=== PATIENT | female | born 1950 | race Hispanic/Latino ===

== ENCOUNTER 2020-06-06 09:06 | Day surgery (SDC) | payer MEDICARE, OTHER ==
[2020-06-06] MEDS ORDERED: Sodium Bicarbonate 2.5 MEQ/5 ML VIAL ONE (09:12)
[2020-06-06 09:29] VITALS: BMI 26.4
[2020-06-06 09:37] VITALS: BP 98/58; TEMP 97.6
== END 2020-06-06 10:50 | disposition home or self-care (01) ==
LOC: CSHRAD 09:06
PROVIDERS: ATTEND Internal Medicine Hepatology
PROC: 0W993ZZ Drainage of Right Pleural Cavity, Percutaneous Approach (ICD-10-PCS; principal; 2020-06-06)
DX: J90 Pleural effusion, not elsewhere classified (principal)
CPT/HCPCS: 71045; 76942

== ENCOUNTER → 2020-06-15 | Day surgery (SDC) | payer MEDICARE, OTHER | LOC: CSHRAD 08:46 | PROVIDERS: ATTEND Internal Medicine Hepatology | DX: J94.8 Other specified pleural conditions (principal) | CPT/HCPCS: 71046 ==

== ENCOUNTER 2020-07-03 09:36 | Day surgery (SDC) | payer MEDICARE, OTHER ==
[2020-07-03 09:46] VITALS: BMI 26.4
[2020-07-03] MEDS ORDERED: Sodium Bicarbonate 2.5 MEQ/5 ML VIAL ONE (09:57)
[2020-07-03 10:07] VITALS: BP 129/69
== END 2020-07-03 11:00 | disposition home or self-care (01) ==
LOC: CSHRAD 09:36
PROVIDERS: ATTEND Internal Medicine Hepatology
PROC: 0W993ZZ Drainage of Right Pleural Cavity, Percutaneous Approach (ICD-10-PCS; principal; 2020-07-03)
DX: J90 Pleural effusion, not elsewhere classified (principal)
CPT/HCPCS: 71045; 76942

== ENCOUNTER 2020-07-12 20:22 | Emergency (ER) | payer MEDICARE, OTHER ==
[2020-07-12 21:44] LABS: #Basophils 0.1 10x3/uL (0.0-0.2); #Eosinphils 0.3 10x3/uL (0.0-0.5); #Monocytes 0.6 10x3/uL (0.0-1.1); #Neutrophils 3.3 10x3/uL (1.5-8.4); %Basophils 0.9 % (0.0-2.0); %Eosinophils 5.4 % (0.0-6.0); %Lymphocytes 21.6 % (18.0-47.0); %Monocytes 10.9 % (0.0-10.0); Hemoglobin 11.5 g/dL (12.0-15.5); Mean Corpuscular HGB CONC 34.8 g/dL (32.0-36.0); Mean Corpuscular Hemoglobin 32.9 pg (27.0-33.0); Mean Corpuscular Volume 94.3 fl (81.6-98.3); Mean Platelet Volume 8.5 fl (7.4-10.4); Platelet Count 124 10x3/uL (150-450); RBC Distribution Width 15.8 % (11.5-14.5); White Blood Cell (WBC) Count 5.4 10x3/uL (3.5-10.5)
[2020-07-12] MEDS ORDERED: Pantoprazole 40 MG VIAL ONE (21:51)
[2020-07-12] MEDS ORDERED: Mag-Al Plus 1200 MG/1200 MG/120 MG/30 ML UDCUP ONE (21:51)
[2020-07-12] MEDS ORDERED: Lidocaine Viscous Sol 2% 15 ml UD Cup ONE (21:51)
[2020-07-12 21:57] LABS: ALT (SGPT) 20 U/L (8-55); AST (SGOT) 51 U/L (5-34); Albumin 2.3 g/dL (3.4-4.8); Alkaline Phosphatase 160 U/L (40-110); Anion Gap 13 mmol/L (10-20); BUN (Urea Nitrogen) 10 mg/dL (9.8-20.1); Bilirubin, Total 2.4 mg/dL (0.2-1.2); CK (CPK) 34 U/L (29-168); Calc. Creatinine Clearance 0 mL/min (70-130); Calcium 8.5 mg/dL (7.8-10.44); Carbon Dioxide 21 mmol/L (23-31); Chloride 102 mmol/L (98-107); Globulin 3.6 g/dL (2.4-3.5); Glucose 111 mg/dL (80-115); Lipase 38 U/L (8-78); Magnesium 1.4 mg/dL (1.6-2.6); Potassium 3.9 mmol/L (3.5-5.1); Protein, Total 5.9 g/dL (5.8-8.1); Sodium 132 mmol/L (136-145)
[2020-07-12 22:01] LABS: INR-International Normal Ratio 1.2; PTT 29.1 sec (22.0-33.0)
[2020-07-12 22:14] LABS: Bilirubin Neg (Negative); Blood, Urine 10 (Negative); Clarity Cloudy (Clear); Glucose, Urine (Dipstick) Normal (Negative); Ketone, Urine 5 mg/dL (Negative); Leukocyte 25 (Negative); Nitrite Negative (Negative); Protein, Urine (Dipstick) Negative (Neg-Trace); Urobilinogen Normal mg/dL (Less than 2)
[2020-07-12 22:20] LABS: RBC/HPF 0-3 HPF (0-3)
[2020-07-12 22:21] LABS: Bacteria/HPF 1+ HPF (None Seen); Squamous Epithelial 0-3 HPF (0-3); WBC/HPF 0-3 HPF (0-3)
[2020-07-12 22:22] LABS: Renal Epithelial 0-3 HPF (None Seen)
[2020-07-12 22:26] LABS: Calcium Oxalate Crystals 3+ HPF (None Seen)
== END 2020-07-12 22:32 | disposition home or self-care (01) ==
LOC: CSHERS 20:22
DX: K42.9 Umbilical hernia without obstruction or gangrene (principal); I10 Essential (primary) hypertension; K74.60 Unspecified cirrhosis of liver; Z79.899 Other long term (current) drug therapy
CPT/HCPCS: 71045; 74176; 80053; 81003; 81015; 82550; 83690; 83735; 84484; 85025; 85610; 85730; 93005; 93010; 96374; C9113

== ENCOUNTER 2020-11-15 12:17 | Inpatient (IN) | payer MEDICARE, OTHER ==
[2020-11-15 14:26] LABS: #Eosinphils 0.1 10x3/uL (0.0-0.5); #Monocytes 0.4 10x3/uL (0.0-1.1); #Neutrophils 4.2 10x3/uL (1.5-8.4); %Basophils 0.3 % (0.0-2.0); %Eosinophils 1.9 % (0.0-6.0); %Lymphocytes 17.1 % (18.0-47.0); %Monocytes 6.5 % (0.0-10.0); Hemoglobin 14.3 g/dL (12.0-15.5); Mean Corpuscular HGB CONC 34.5 g/dL (32.0-36.0); Mean Corpuscular Hemoglobin 32.5 pg (27.0-33.0); Mean Corpuscular Volume 94.1 fl (81.6-98.3); Mean Platelet Volume 10.1 fl (7.4-10.4); Platelet Count 120 10x3/uL (150-450); RBC Distribution Width 14.3 % (11.5-14.5); White Blood Cell (WBC) Count 5.7 10x3/uL (3.5-10.5)
[2020-11-15 14:48] LABS: ALT (SGPT) 29 U/L (8-55); AST (SGOT) 59 U/L (5-34); Albumin 2.7 g/dL (3.4-4.8); Alkaline Phosphatase 178 U/L (40-110); Anion Gap 18 mmol/L (10-20); BUN (Urea Nitrogen) 33 mg/dL (9.8-20.1); Bilirubin, Total 2.9 mg/dL (0.2-1.2); CK (CPK) 41 U/L (29-168); Calc. Creatinine Clearance 0 mL/min (70-130); Calcium 10.9 mg/dL (7.8-10.44); Carbon Dioxide 21 mmol/L (23-31); Chloride 99 mmol/L (98-107); Globulin 5.5 g/dL (2.4-3.5); Glucose 137 mg/dL (80-115); Potassium 4.7 mmol/L (3.5-5.1); Protein, Total 8.2 g/dL (5.8-8.1); Sodium 133 mmol/L (136-145)
[2020-11-15 15:50] LABS: Bilirubin Neg (Negative); Blood, Urine 10 (Negative); Clarity Clear (Clear); Glucose, Urine (Dipstick) Normal (Negative); Ketone, Urine Negative (Negative); Leukocyte 25 (Negative); Nitrite Negative (Negative); Protein, Urine (Dipstick) Negative (Neg-Trace); Urobilinogen Normal mg/dL (Less than 2)
[2020-11-15 16:06] LABS: Bacteria/HPF Rare-Few HPF (None Seen); RBC/HPF 0-3 HPF (0-3); Squamous Epithelial 0-3 HPF (0-3); WBC/HPF 0-3 HPF (0-3)
[2020-11-15 16:49] LABS: SARS-CoV-2 NAA Rapid Test Not Detected (NotDetected)
[2020-11-15 18:18] LABS: Lactic Acid 2.7 mmol/L (0.5-2.2)
[2020-11-15] MEDS ORDERED: Senokot S 8.6-50 MG TAB PO PRN (19:24)
[2020-11-15] MEDS ORDERED: Acetaminophen 325 MG TAB PO PRN (19:24)
[2020-11-15] MEDS ORDERED: Ondansetron PF 4 MG/2 ML Vial IVP PRN (19:24)
[2020-11-15] MEDS ORDERED: Calcium Carbonate 500 MG ChewTAB PO PRN (19:24)
[2020-11-15] MEDS ORDERED: Sodium Chloride 0.9% 500 ML IV SCH (19:30)
[2020-11-15 21:01] VITALS: BMI 24.5
[2020-11-15] MEDS: Rifaximin 550 MG TAB PO SCH (21:12)
[2020-11-16 06:02] LABS: #Eosinphils 0.3 10x3/uL (0.0-0.5); #Monocytes 0.4 10x3/uL (0.0-1.1); #Neutrophils 2.6 10x3/uL (1.5-8.4); %Basophils 0.5 % (0.0-2.0); %Monocytes 9.4 % (0.0-10.0); %Neutrophils 62.6 % (40.0-75.0); Hemoglobin 13.1 g/dL (12.0-15.5); Mean Corpuscular HGB CONC 35.1 g/dL (32.0-36.0); Mean Corpuscular Hemoglobin 32.9 pg (27.0-33.0); Mean Corpuscular Volume 93.7 fl (81.6-98.3); Mean Platelet Volume 10.1 fl (7.4-10.4); Platelet Count 91 10x3/uL (150-450); RBC Distribution Width 14.6 % (11.5-14.5); Red Blood Cell (RBC) Count 3.98 10x6/uL (3.90-5.03); White Blood Cell (WBC) Count 4.2 10x3/uL (3.5-10.5)
[2020-11-16 06:09] LABS: ALT (SGPT) 28 U/L (8-55); AST (SGOT) 58 U/L (5-34); Albumin 2.4 g/dL (3.4-4.8); Alkaline Phosphatase 135 U/L (40-110); Anion Gap 17 mmol/L (10-20); BUN (Urea Nitrogen) 26 mg/dL (9.8-20.1); Bilirubin, Total 2.2 mg/dL (0.2-1.2); Calc. Creatinine Clearance 29 mL/min (70-130); Calcium 9.2 mg/dL (7.8-10.44); Carbon Dioxide 19 mmol/L (23-31); Chloride 104 mmol/L (98-107); Globulin 4.8 g/dL (2.4-3.5); Glucose 96 mg/dL (80-115); Protein, Total 7.2 g/dL (5.8-8.1); Sodium 135 mmol/L (136-145)
[2020-11-16 06:16] LABS: Lactic Acid 1.8 mmol/L (0.5-2.2)
[2020-11-16] MEDS: Enoxaparin Sodium 30 MG/0.3 ML SYRINGE SC SCH (07:56)
[2020-11-16] MEDS: Rifaximin 550 MG TAB PO SCH ×2 (08:05→20:26)
[2020-11-16] MEDS ORDERED: Sodium Chloride 0.9% 250 ML IV SCH (09:00)
[2020-11-16 11:40] LABS: Hemoglobin A1c 5.3 % (4.0-6.0)
[2020-11-17 03:57] LABS: ALT (SGPT) 30 U/L (8-55); AST (SGOT) 56 U/L (5-34); Albumin 2.2 g/dL (3.4-4.8); Alkaline Phosphatase 150 U/L (40-110); Anion Gap 14 mmol/L (10-20); BUN (Urea Nitrogen) 16 mg/dL (9.8-20.1); Calc. Creatinine Clearance 32 mL/min (70-130); Calcium 9.5 mg/dL (7.8-10.44); Carbon Dioxide 18 mmol/L (23-31); Chloride 104 mmol/L (98-107); Globulin 4.6 g/dL (2.4-3.5); Glucose 106 mg/dL (80-115); Potassium 3.8 mmol/L (3.5-5.1); Protein, Total 6.8 g/dL (5.8-8.1); Sodium 132 mmol/L (136-145)
[2020-11-17 04:19] LABS: #Eosinphils 0.3 10x3/uL (0.0-0.5); #Monocytes 0.4 10x3/uL (0.0-1.1); #Neutrophils 2.1 10x3/uL (1.5-8.4); %Basophils 0.5 % (0.0-2.0); %Eosinophils 7.5 % (0.0-6.0); %Lymphocytes 24.8 % (18.0-47.0); %Monocytes 11.7 % (0.0-10.0); %Neutrophils 55.2 % (40.0-75.0); Hemoglobin 12.3 g/dL (12.0-15.5); Mean Corpuscular HGB CONC 35.2 g/dL (32.0-36.0); Mean Corpuscular Hemoglobin 32.2 pg (27.0-33.0); Mean Corpuscular Volume 91.4 fl (81.6-98.3); Mean Platelet Volume 10.3 fl (7.4-10.4); Platelet Count 88 10x3/uL (150-450); RBC Distribution Width 14.2 % (11.5-14.5); Red Blood Cell (RBC) Count 3.82 10x6/uL (3.90-5.03); White Blood Cell (WBC) Count 3.8 10x3/uL (3.5-10.5)
[2020-11-17] MEDS: Furosemide 20 MG TAB PO SCH (08:00)
[2020-11-17] MEDS: Enoxaparin Sodium 30 MG/0.3 ML SYRINGE SC SCH (08:00)
[2020-11-17] MEDS: Spironolactone 25 MG TAB PO SCH (08:00)
[2020-11-17] MEDS: Rifaximin 550 MG TAB PO SCH ×2 (09:59→21:35)
[2020-11-18 05:28] LABS: ALT (SGPT) 30 U/L (8-55); AST (SGOT) 63 U/L (5-34); Albumin 2.3 g/dL (3.4-4.8); Alkaline Phosphatase 155 U/L (40-110); Anion Gap 13 mmol/L (10-20); BUN (Urea Nitrogen) 14 mg/dL (9.8-20.1); Calc. Creatinine Clearance 41 mL/min (70-130); Calcium 9.6 mg/dL (7.8-10.44); Carbon Dioxide 20 mmol/L (23-31); Chloride 105 mmol/L (98-107); Globulin 4.9 g/dL (2.4-3.5); Glucose 105 mg/dL (80-115); Magnesium 1.6 mg/dL (1.6-2.6); Protein, Total 7.2 g/dL (5.8-8.1); Sodium 134 mmol/L (136-145)
[2020-11-18 05:51] LABS: #Eosinphils 0.6 10x3/uL (0.0-0.5); #Monocytes 0.5 10x3/uL (0.0-1.1); #Neutrophils 2.3 10x3/uL (1.5-8.4); %Basophils 0.7 % (0.0-2.0); %Eosinophils 12.3 % (0.0-6.0); %Lymphocytes 25.6 % (18.0-47.0); %Monocytes 10.5 % (0.0-10.0); %Neutrophils 50.7 % (40.0-75.0); Hemoglobin 12.9 g/dL (12.0-15.5); Mean Corpuscular HGB CONC 35.2 g/dL (32.0-36.0); Mean Corpuscular Hemoglobin 32.6 pg (27.0-33.0); Mean Corpuscular Volume 92.4 fl (81.6-98.3); Mean Platelet Volume 9.9 fl (7.4-10.4); Platelet Count 97 10x3/uL (150-450); RBC Distribution Width 14.2 % (11.5-14.5); Red Blood Cell (RBC) Count 3.96 10x6/uL (3.90-5.03); White Blood Cell (WBC) Count 4.6 10x3/uL (3.5-10.5)
[2020-11-18] MEDS: Enoxaparin Sodium 30 MG/0.3 ML SYRINGE SC SCH (08:39)
[2020-11-18] MEDS: Rifaximin 550 MG TAB PO SCH ×2 (08:39→21:22)
[2020-11-18] MEDS: Furosemide 20 MG TAB PO SCH (08:39)
[2020-11-18] MEDS: Spironolactone 25 MG TAB PO SCH (08:39)
[2020-11-18 13:43] LABS: #Eosinphils 0.4 10x3/uL (0.0-0.5); #Monocytes 0.4 10x3/uL (0.0-1.1); #Neutrophils 3.1 10x3/uL (1.5-8.4); %Basophils 0.4 % (0.0-2.0); %Eosinophils 7.3 % (0.0-6.0); %Lymphocytes 22.2 % (18.0-47.0); %Monocytes 7.9 % (0.0-10.0); %Neutrophils 61.8 % (40.0-75.0); Hemoglobin 13.8 g/dL (12.0-15.5); Mean Corpuscular HGB CONC 34.8 g/dL (32.0-36.0); Mean Corpuscular Hemoglobin 32.5 pg (27.0-33.0); Mean Corpuscular Volume 93.4 fl (81.6-98.3); Mean Platelet Volume 9.5 fl (7.4-10.4); Platelet Count 107 10x3/uL (150-450); Red Blood Cell (RBC) Count 4.25 10x6/uL (3.90-5.03)
[2020-11-18 13:48] LABS: ALT (SGPT) 32 U/L (8-55); AST (SGOT) 63 U/L (5-34); Albumin 2.4 g/dL (3.4-4.8); Alkaline Phosphatase 160 U/L (40-110); Anion Gap 15 mmol/L (10-20); BUN (Urea Nitrogen) 12 mg/dL (9.8-20.1); Bilirubin, Total 2.2 mg/dL (0.2-1.2); Calc. Creatinine Clearance 40 mL/min (70-130); Calcium 9.6 mg/dL (7.8-10.44); Carbon Dioxide 19 mmol/L (23-31); Chloride 103 mmol/L (98-107); Glucose 147 mg/dL (80-115); Magnesium 1.6 mg/dL (1.6-2.6); Potassium 3.8 mmol/L (3.5-5.1); Protein, Total 7.4 g/dL (5.8-8.1); Sodium 133 mmol/L (136-145)
[2020-11-19] MEDS: Spironolactone 25 MG TAB PO SCH (08:10)
[2020-11-19] MEDS: Enoxaparin Sodium 30 MG/0.3 ML SYRINGE SC SCH (08:11)
[2020-11-19] MEDS: Furosemide 20 MG TAB PO SCH (08:11)
[2020-11-19] MEDS: Rifaximin 550 MG TAB PO SCH (08:11)
[2020-11-19 12:13] VITALS: BP 124/65; TEMP 98.7
== END 2020-11-19 14:54 | disposition home or self-care (01) | DRG 442 ==
LOC: CSHERS 12:17 → CSHTELE 20:57
PROVIDERS: ADMIT Student in an Organized Health Care Education/Training Program; ATTEND Family Medicine
DX: K72.00 Acute and subacute hepatic failure without coma (principal); N17.9 Acute kidney failure, unspecified; E87.2 Acidosis; J90 Pleural effusion, not elsewhere classified; E87.1 Hypo-osmolality and hyponatremia; E72.20 Disorder of urea cycle metabolism, unspecified; E83.52 Hypercalcemia; D69.6 Thrombocytopenia, unspecified; I48.0 Paroxysmal atrial fibrillation; K75.81 Nonalcoholic steatohepatitis (NASH); Z87.891 Personal history of nicotine dependence; I12.9 Hypertensive chronic kidney disease with stage 1 through stage 4 chronic kidney disease, or unspecified chronic kidney disease; N18.31 Chronic kidney disease, stage 3a; K59.00 Constipation, unspecified; Z20.822 Contact with and (suspected) exposure to COVID-19
CPT/HCPCS: 36415; 70450; 71045; 74176; 80053; 81003; 81015; 82140; 82550; 83036; 83605; 83735; 84484; 85025; 93005; J1650; J7030; U0002

== ENCOUNTER 2021-09-02 22:06 | Emergency (ER) | payer MEDICARE, OTHER ==
[2021-09-02 22:33] LABS: #Eosinphils 0.2 10x3/uL (0.0-0.5); #Monocytes 0.8 10x3/uL (0.0-1.1); #Neutrophils 4.6 10x3/uL (1.5-8.4); %Basophils 0.5 % (0.0-2.0); %Eosinophils 2.9 % (0.0-6.0); %Lymphocytes 25.4 % (18.0-47.0); %Monocytes 10.2 % (0.0-10.0); %Neutrophils 60.6 % (40.0-75.0); Hemoglobin 15.5 g/dL (12.0-15.5); Mean Corpuscular Volume 91.5 fl (81.6-98.3); Mean Platelet Volume 9.6 fl (7.4-10.4); Platelet Count 144 10x3/uL (150-450); RBC Distribution Width 13.8 % (11.5-14.5); White Blood Cell (WBC) Count 7.6 10x3/uL (3.5-10.5)
[2021-09-02 22:54] LABS: ALT (SGPT) 28 U/L (8-55); AST (SGOT) 60 U/L (5-34); Alkaline Phosphatase 150 U/L (40-110); Anion Gap 22 mmol/L (10-20); BUN (Urea Nitrogen) 24 mg/dL (9.8-20.1); Bilirubin, Total 3.2 mg/dL (0.2-1.2); Calc. Creatinine Clearance 0 mL/min (70-130); Calcium 10.2 mg/dL (7.8-10.44); Carbon Dioxide 17 mmol/L (23-31); Chloride 97 mmol/L (98-107); Globulin 5.3 g/dL (2.4-3.5); Glucose 190 mg/dL (80-115); Lipase 25 U/L (8-78); Potassium 4.1 mmol/L (3.5-5.1); Protein, Total 8.3 g/dL (5.8-8.1); Sodium 132 mmol/L (136-145)
[2021-09-03 00:54] LABS: Bilirubin Neg (Negative); Blood, Urine 10 (Negative); Clarity Slightly Cloudy (Clear); Glucose, Urine (Dipstick) Normal (Negative); Ketone, Urine Negative (Negative); Leukocyte 100 (Negative); Nitrite Negative (Negative); Protein, Urine (Dipstick) 15 mg/dl (Neg-Trace)
[2021-09-03 01:03] LABS: RBC/HPF 0-3 HPF (0-3)
[2021-09-03 01:04] LABS: Bacteria/HPF 1+ HPF (None Seen)
== END 2021-09-03 03:14 | disposition admitted as inpatient to this hospital (09) ==
LOC: CSHERS 22:06
DX: N17.9 Acute kidney failure, unspecified (principal); K72.90 Hepatic failure, unspecified without coma; I10 Essential (primary) hypertension; Z87.19 Personal history of other diseases of the digestive system; Z87.891 Personal history of nicotine dependence; Z79.899 Other long term (current) drug therapy
CPT/HCPCS: 74176; 80053; 82140; 83690; 84484; 85025; 93005

== ENCOUNTER 2021-10-22 03:17 | Observation (INO) | payer MEDICARE, OTHER ==
[2021-10-22 03:31] VITALS: BMI 27.3
[2021-10-22] MEDS ORDERED: Calcium Carbonate 500 MG ChewTAB PO PRN (03:33)
[2021-10-22] MEDS ORDERED: Acetaminophen 325 MG TAB PO PRN (03:33)
[2021-10-22] MEDS ORDERED: Guaifenesin DM 100-10/5 ML UDCUP PO PRN (03:33)
[2021-10-22] MEDS ORDERED: Senokot S 8.6-50 MG TAB PO PRN (03:33)
[2021-10-22] MEDS ORDERED: Magnesium Sulfate/D5W 1 GM/100 ML BAG IVPB SCH (03:45)
[2021-10-22] MEDS ORDERED: Sodium Chloride 0.9% 500 ML IV SCH (03:45)
[2021-10-22] MEDS ORDERED: Potassium Chloride 20 MEQ TAB PO SCH (03:45)
[2021-10-22 06:27] LABS: Anion Gap 13 mmol/L (10-20); BUN (Urea Nitrogen) 17 mg/dL (9.8-20.1); Calc. Creatinine Clearance 37 mL/min (70-130); Carbon Dioxide 20 mmol/L (23-31); Chloride 105 mmol/L (98-107); Estimated GFR 40; Glucose 126 mg/dL (80-115); Magnesium 1.8 mg/dL (1.6-2.6); Potassium 3.8 mmol/L (3.5-5.1); Sodium 134 mmol/L (136-145)
[2021-10-22] MEDS ORDERED: SPIRONOLACTONE 50 MG PO SCH (09:00)
[2021-10-22] MEDS: Rifaximin 550 MG TAB PO SCH ×2 (09:16→20:41)
[2021-10-22 12:35] LABS: Anion Gap 14 mmol/L (10-20); BUN (Urea Nitrogen) 15 mg/dL (9.8-20.1); Calc. Creatinine Clearance 37 mL/min (70-130); Calcium 9.1 mg/dL (7.8-10.44); Carbon Dioxide 20 mmol/L (23-31); Chloride 104 mmol/L (98-107); Estimated GFR 40; Glucose 193 mg/dL (80-115); Sodium 134 mmol/L (136-145)
[2021-10-22] MEDS ORDERED: Albumin 25% 25 GM/100 ML BOT IVPB SCH (18:00)
[2021-10-22] MEDS: Albumin 25% 25 GM/100 ML BOT IVPB SCH (23:55)
[2021-10-23 04:04] LABS: #Eosinphils 0.4 10x3/uL (0.0-0.5); #Monocytes 0.4 10x3/uL (0.0-1.1); #Neutrophils 1.9 10x3/uL (1.5-8.4); %Lymphocytes 29.8 % (18.0-47.0); %Monocytes 11.3 % (0.0-10.0); %Neutrophils 47.6 % (40.0-75.0); Hemoglobin 11.3 g/dL (12.0-15.5); Mean Corpuscular HGB CONC 36.1 g/dL (32.0-36.0); Mean Corpuscular Hemoglobin 32.7 pg (27.0-33.0); Mean Corpuscular Volume 90.5 fl (81.6-98.3); Mean Platelet Volume 9.8 fl (7.4-10.4); Platelet Count 83 10x3/uL (150-450); RBC Distribution Width 13.6 % (11.5-14.5); Red Blood Cell (RBC) Count 3.46 10x6/uL (3.90-5.03); White Blood Cell (WBC) Count 3.9 10x3/uL (3.5-10.5)
[2021-10-23 04:11] LABS: ALT (SGPT) 23 U/L (8-55); AST (SGOT) 42 U/L (5-34); Albumin 2.7 g/dL (3.4-4.8); Alkaline Phosphatase 97 U/L (40-110); Anion Gap 12 mmol/L (10-20); BUN (Urea Nitrogen) 11 mg/dL (9.8-20.1); Bilirubin, Total 2.5 mg/dL (0.2-1.2); Calc. Creatinine Clearance 46 mL/min (70-130); Calcium 9.2 mg/dL (7.8-10.44); Carbon Dioxide 20 mmol/L (23-31); Chloride 109 mmol/L (98-107); Estimated GFR 52; Globulin 3.2 g/dL (2.4-3.5); Glucose 100 mg/dL (80-115); Potassium 4.2 mmol/L (3.5-5.1); Protein, Total 5.9 g/dL (5.8-8.1); Sodium 137 mmol/L (136-145)
[2021-10-23] MEDS: Albumin 25% 25 GM/100 ML BOT IVPB SCH ×2 (05:57→12:50)
[2021-10-23] MEDS: Rifaximin 550 MG TAB PO SCH (08:23)
[2021-10-23 12:33] VITALS: BP 120/58; TEMP 97.7
[2021-10-23] MEDS ORDERED: Albumin 25% 25 GM/100 ML BOT IVPB SCH (12:45)
== END 2021-10-23 15:35 | disposition home or self-care (01) ==
LOC: CSHTELE 03:17
PROVIDERS: ADMIT Student in an Organized Health Care Education/Training Program; ATTEND Internal Medicine
DX: K72.90 Hepatic failure, unspecified without coma (principal); K74.60 Unspecified cirrhosis of liver; R41.0 Disorientation, unspecified; R25.1 Tremor, unspecified; E87.6 Hypokalemia; D69.6 Thrombocytopenia, unspecified; K76.6 Portal hypertension; I85.00 Esophageal varices without bleeding; K75.81 Nonalcoholic steatohepatitis (NASH); K21.9 Gastro-esophageal reflux disease without esophagitis; J90 Pleural effusion, not elsewhere classified; N17.9 Acute kidney failure, unspecified; I12.9 Hypertensive chronic kidney disease with stage 1 through stage 4 chronic kidney disease, or unspecified chronic kidney disease; E11.22 Type 2 diabetes mellitus with diabetic chronic kidney disease; N18.30 Chronic kidney disease, stage 3 unspecified; I48.0 Paroxysmal atrial fibrillation; E72.20 Disorder of urea cycle metabolism, unspecified; Z79.899 Other long term (current) drug therapy; Z20.822 Contact with and (suspected) exposure to COVID-19; Z91.14 Patient's other noncompliance with medication regimen; Z87.891 Personal history of nicotine dependence; Z90.49 Acquired absence of other specified parts of digestive tract; Z98.890 Other specified postprocedural states; I10 Essential (primary) hypertension
CPT/HCPCS: 71045; 80048 ×2; 80053 ×2; 82140 ×2; 83735 ×2; 84484; 85025 ×2; 93005; 96374; 96375; 96376; 99285; G0378 ×2; J3475; P9047 ×2; U0003; U0005; 36415; J7030

== ENCOUNTER 2023-03-18 12:36 | Outpatient (CLI) | payer MEDICARE, OTHER | END 2023-03-18 12:37 | disposition home or self-care (01) | LOC: CSHCT 12:36 | PROVIDERS: ATTEND Transplant Surgery | DX: M54.50 Low back pain, unspecified (principal); J90 Pleural effusion, not elsewhere classified; M51.36 Other intervertebral disc degeneration, lumbar region; M47.816 Spondylosis without myelopathy or radiculopathy, lumbar region | CPT/HCPCS: 72128; 72131 ==

== ENCOUNTER 2023-04-15 14:39 | Outpatient (CLI) | payer MEDICARE, OTHER | END 2023-04-15 14:40 | disposition home or self-care (01) | LOC: CSHMRI 14:39 | PROVIDERS: ATTEND Nurse Practitioner Family | DX: M47.24 Other spondylosis with radiculopathy, thoracic region (principal); J98.4 Other disorders of lung; J90 Pleural effusion, not elsewhere classified | CPT/HCPCS: 72146 ==

== ENCOUNTER 2024-02-09 10:59 | Emergency (ER) | payer MEDICARE, OTHER | END 2024-02-09 13:30 | disposition home or self-care (01) | LOC: CSHERS 10:59 | DX: M79.10 Myalgia, unspecified site (principal); E11.9 Type 2 diabetes mellitus without complications; I10 Essential (primary) hypertension; Z55.0 Illiteracy and low-level literacy; Z87.891 Personal history of nicotine dependence; W19.XXXA Unspecified fall, initial encounter | CPT/HCPCS: 99283 ==